=== PATIENT | female | born 1990 ===

== ENCOUNTER 2018-01-21 17:33 | Emergency (ER) | payer MEDICAID ==
[2018-01-21 17:59] VITALS: BP 140/95
[2018-01-21 18:36] LABS: Basophils # (Auto) 0.1 K/mm3 (0.0-0.1); Basophils % (Auto) 0.9 % (0.0-1.8); Eosinophils # (Auto) 0.2 K/mm3 (0.0-0.4); Eosinophils % (Auto) 2.3 % (0.0-4.3); Hematocrit 41.1 % (30.3-42.9); Hemoglobin 13.8 gm/dl (10.1-14.3); Lymphocytes # (Auto) 1.9 K/mm3 (1.2-5.4); Mean Corpuscular HGB Conc 34 % (30-34); Mean Corpuscular Hemoglobin 32 pg (28-32); Mean Corpuscular Volume 96 fl (79-97); Monocytes # (Auto) 0.6 K/mm3 (0.0-0.8); Monocytes % (Auto) 6.1 % (0.0-7.3); Platelet Count 204 K/mm3 (140-440); Red Blood Count 4.28 M/mm3 (3.65-5.03); Red Cell Distribution Width 12.7 % (13.2-15.2)
[2018-01-21 18:59] LABS: BUN/Creatinine Ratio 14; Blood Urea Nitrogen 10 mg/dL (7-17); Calcium 9.6 mg/dL (8.4-10.2); Hemolysis Index 39
--- NOTE | 2018-01-21 20:33 | Emergency Department Report ---
ED HPI - General Chief complaint: Medical Clearance Stated complaint: EPTOMIC /PAIN Time Seen by Provider: 01/21/18 18:56 Source: patient Mode of arrival: Ambulatory Limitations: No Limitations - History of Present Illness Initial comments: 27-year-old female was at the clinic with a confirmed via urine. They performed an ultrasound and reported seen. No evidence of an IUP at that time. She was advised to come to the emergency department for evaluation of an ectopic . Ultrasound did not report seeing any masses in the fallopian tubecyst. [facility] "was not performed. Patient has been pain free reports no vaginal bleeding, vaginal discharge or cramping. - Related Data Allergies Allergy/AdvReac Type Severity Reaction Status Date / Time No Known Allergies Allergy Unverified 01/21/18 17:55 ED Review of Systems ROS: Stated complaint: EPTOMIC /PAIN Other details as noted in HPI Constitutional: denies: chills, fever Eyes: denies: eye pain, eye discharge, vision change ENT: denies: ear pain, throat pain Respiratory: denies: cough, shortness of breath, wheezing Cardiovascular: denies: chest pain, palpitations Endocrine: no symptoms reported Gastrointestinal: denies: abdominal pain, nausea, diarrhea Genitourinary: denies: urgency, dysuria, discharge Musculoskeletal: denies: back pain, joint swelling, arthralgia Skin: denies: rash, lesions Neurological: denies: headache, weakness, paresthesias Psychiatric: denies: anxiety, depression Hematological/Lymphatic: denies: easy bleeding, easy bruising ED Past Medical Hx - Past Medical History Previous Medical History?: No - Surgical History Past Surgical History?: No - Social History Smoking Status: Never Smoker Substance Use Type: None ED Physical Exam - General Limitations: No Limitations General appearance: alert, in no apparent distress - Head Head exam: Present: atraumatic, normocephalic - Eye Eye exam: Present: normal appearance - ENT ENT exam: Present: mucous membranes moist - Neck Neck exam: Present: normal inspection - Respiratory Respiratory exam: Present: normal lung sounds bilaterally. Absent: respiratory distress - Cardiovascular Cardiovascular Exam: Present: regular rate, normal rhythm. Absent: systolic murmur, diastolic murmur, rubs, gallop - GI/Abdominal GI/Abdominal exam: Present: soft, normal bowel sounds - Extremities Exam Extremities exam: Present: normal inspection - Back Exam Back exam: Present: normal inspection - Neurological Exam Neurological exam: Present: alert, oriented X3 - Psychiatric Psychiatric exam: Present: normal affect, normal mood - Skin Skin exam: Present: warm, dry, intact, normal color. Absent: rash ED Course Vital Signs 01/21/18 17:55 Temperature 97.8 F Pulse Rate 81 Respiratory 20 Rate Blood Pressure 140/95 O2 Sat by Pulse 100 Oximetry ED Medical Decision Making - Lab Data Result diagrams: 01/21/18 18:22 01/21/18 18:22 - Radiology Data Radiology results: report reviewed - Medical Decision Making Discussed the findings of the ultrasound report. The need to follow with OB/ [facility] for serial hCG checks and repeat ultrasound some point. No evidence of any ectopic wasn't was confirmed with this visit Critical care attestation.: If time is entered above; I have spent that time in minutes in the direct care of this critically ill patient, excluding procedure time. ED Disposition Clinical Impression: Elevated serum hCG Disposition: DC- TO HOME OR SELFCARE Is pt being admited?: No Does the pt Need Aspirin: No Condition: Stable Instructions: (ED) Referrals: PRIMARY CARE, [Primary Care Provider] - 3-5 Days [facility] [Provider Group] - 2-3 Days (repeat HCG quant and possible repeat US in 2-3 weeks )
--- NOTE | 2018-01-21 21:26 | Ultrasound Report ---
FINAL REPORT EXAM: US OB TRANSVAGINAL HISTORY: pelvic pain and last menstrual period is unknown. Possibly November 23, 2017. TECHNIQUE: Transvaginal grayscale and color-flow imaging of the pelvis was performed. Comparison: Transabdominal study also performed today FINDINGS: The uterus measures 9.5 centimeters x 4.9 centimeters x 5.9 centimeters. Endometrial thickness measures 12.4 millimeters. There is demonstration of a small, approximately 2.8 millimeter x 2.2 millimeter x 4 millimeter, hypoechoic region within the endometrium in the region of the fundus. This may represent an early intrauterine gestational sac. There is no demonstration of yolk sac or pole at this time. The cervix is unremarkable in appearance. The right ovary measures 3.3 centimeters x 2.3 centimeters x 2.4 centimeters. There is a heterogeneous hypoechoic region within the right ovary which may represent a corpus luteum cyst. The left ovary measures 2.7 centimeters x 1.9 centimeters x 2.3 centimeters and is unremarkable in appearance. No free fluid is demonstrated in the pelvis. IMPRESSION: 1. Small hypoechoic region in the endometrium in the region of the fundus of the uterus. This may represent an early intrauterine gestational sac. Short-term follow-up in correlation with beta HCG will be helpful. 2. Possible corpus luteum cyst right ovary.
--- NOTE | 2018-01-21 21:29 | Ultrasound Report ---
FINAL REPORT EXAM: US OB < = 14 WEEKS FETUS HISTORY: sent from clinic to evaluate for ectopic last menstrual period is unknown but possibly November 23, 2017. TECHNIQUE: Transabdominal grayscale and color-flow imaging of the pelvis was performed. Comparison: Transvaginal study also performed today. FINDINGS: The uterus measures 7.9 centimeters x 4.8 centimeters by 6.1 centimeters. Endometrial thickness measures 2.7 centimeters. There is no definite evidence of an intrauterine gestation on the transabdominal study. The right ovary measures 4 centimeters x 2.4 centimeters x 3.3 centimeters in size. The left ovary is not visualized on the transabdominal study. No free fluid is demonstrated in the pelvis. IMPRESSION: 1. Increased thickness of the endometrium. 2. No demonstration of an intrauterine gestation on the transabdominal study. Please see report of transvaginal study also performed today which describes a small possible early intrauterine gestational sac. Short-term follow-up in correlation with beta HCG will be helpful.
[2018-01-21 21:51] LABS: Bacteria,Urine 2+ /HPF (Negative); Bilirubin,Urine NEG (Negative); Blood,Urine MOD (Negative); Color,Urine Yellow (Yellow); Mucus,Urine FEW /HPF; Protein,Urine <15 mg/dL mg/dL (Negative); Urobilinogen,Urine < 2.0 mg/dL (<2.0)
== END 2018-01-21 22:37 | disposition home or self-care (01) ==
LOC: ED 17:33
DX: Z32.01 Encounter for pregnancy test, result positive (principal)
CPT/HCPCS: 36415; 76801; 76817; 80048; 81001; 84702; 85025; 86900; 86901; 99284

== ENCOUNTER 2018-07-29 01:14 | Emergency (ER) | payer MEDICAID ==
[2018-07-28 21:51] LABS: Hematocrit 36.3 % (30.3-42.9); Hemoglobin 12.4 gm/dl (10.1-14.3); Mean Corpuscular HGB Conc 34 % (30-34); Mean Corpuscular Volume 93 fl (79-97); Platelet Count 177 K/mm3 (140-440); Red Blood Count 3.91 M/mm3 (3.65-5.03); Red Cell Distribution Width 13.2 % (13.2-15.2)
--- NOTE | 2018-07-29 00:12 | Ultrasound Report ---
PROCEDURE: US OB LIMITED TECHNIQUE: Real-time limited sonographic examination was performed for evaluation of for each fetus with image documentation (1 or more fetuses). HISTORY: s/p fall COMPARISONS: None . FINDINGS: Amniotic fluid index is 12 cm which is within normal limits. Fetus is in cephalic presentation. Placenta is right lateral. There is no previa. heart rate is 155 bpm. IMPRESSION: Amniotic fluid index equals 12 cm. This document is electronically signed by Ming Grady MD., July 29 2018 12:10:09 AM ET
[~2018-07-29 01:14] MED LIST: LACTATED RINGERS 1,000 ML IV ONE; LACTATED RINGERS 1,000 ML ONE
--- NOTE | 2018-07-29 03:01 | XRay Report ---
PROCEDURE: XR ANKLE 3+V RT TECHNIQUE: 3 views of the right ankle were obtained. HISTORY: fall with pain COMPARISONS: None FINDINGS: There is mild soft tissue swelling overlying the lateral malleolus. Ankle mortise is well-maintained. There is no evidence of fracture. IMPRESSION: Lateral soft tissue swelling. No evidence of fracture.. This document is electronically signed by Franky Juarez MD., July 29 2018 03:00:05 AM ET
--- NOTE | 2018-07-29 03:30 | XRay Report ---
PROCEDURE: RIGHT FOOT, 3 VIEWS TECHNIQUE: RIGHT foot radiographs, AP, lateral, and oblique views. CPT 62232 HISTORY: Pain COMPARISONS: None . FINDINGS: Fracture (s) and/or Dislocation(s): None . Alignment: Normal . Joint space(s): Normal . Soft tissues: Normal . Bone mineralization: Normal . Foreign bodies: None . Calcaneal spurring: None . IMPRESSION: Normal Examination . This document is electronically signed by Ming Grady MD., July 29 2018 03:28:54 AM ET
--- NOTE | 2018-07-29 04:44 | Emergency Department Report ---
ED Lower Extremity HPI - General Chief Complaint: Extremity Injury, Lower Stated Complaint: PREG Time Seen by Provider: 07/29/18 04:27 Source: patient Mode of arrival: Ambulatory Limitations: No Limitations - History of Present Illness Initial Comments: Pt is a 28 yo female who presents to the ED with c/o right ankle pain and edema that began today at 8 PM. She states she stepped wrong off of her porch. She has not been ambulatory since the fall secondary to pain. She has a tingling sensation in her toes. She is able to move the digits. She denies any numbness or weakness. She denies any previous injury. She is currently 31 weeks and was cleared by L&D prior to being evaluated in the ED. She denies any abd pain or vag bleeding. - Related Data Home Medications Medication Instructions Recorded Confirmed Last Taken Pnv 29-1 Tablet 1 tab PO 07/28/18 07/27/18 20:00 1 tab Allergies Allergy/AdvReac Type Severity Reaction Status Date / Time No Known Allergies Allergy Unverified 01/21/18 17:55 ED Review of Systems ROS: Stated complaint: PREG Other details as noted in HPI Comment: All other systems reviewed and negative ED Past Medical Hx - Past Medical History Previous Medical History?: No Hx Hypertension: No Hx Diabetes: No Hx Deep Vein Thrombosis: No Hx Renal Disease: No Hx Sickle Cell Disease: No Hx Seizures: No Hx Asthma: No - Surgical History Past Surgical History?: No - Social History Smoking Status: Never Smoker Substance Use Type: None - Medications Home Medications: Home Medications Medication Instructions Recorded Confirmed Last Taken Type Pnv 29-1 Tablet 1 tab PO 07/28/18 07/27/18 20:00 History 1 tab ED Physical Exam - General Limitations: No Limitations General appearance: alert, in no apparent distress - Head Head exam: Present: atraumatic, normocephalic - Eye Eye exam: Present: normal appearance - ENT ENT exam: Present: mucous membranes moist - Extremities Exam Extremities exam: Present: other (TTP over the right lateral malleolus, edema present over the right lateral ankle, no TTP of the right foot, FROM of the right ankle with pain with flexion and internal rotation, no obvious joint laxity, neurovascularly intact) - Neurological Exam Neurological exam: Present: alert, oriented X3 - Psychiatric Psychiatric exam: Present: normal affect, normal mood - Skin Skin exam: Present: warm, dry, intact ED Course Vital Signs 07/28/18 07/28/18 07/29/18 20:52 21:05 01:20 Temperature 98.2 F 98.4 F Pulse Rate 93 H 93 H 101 H Respiratory 18 18 Rate Blood Pressure 112/71 126/78 Blood Pressure 112/71 [Left] O2 Sat by Pulse 97 Oximetry ED Lower Extremity MDM - Lab Data Result diagrams: 07/28/18 21:40 - Radiology Data Radiology results: report reviewed PROCEDURE: RIGHT FOOT, 3 VIEWS TECHNIQUE: RIGHT foot radiographs, AP, lateral, and oblique views. CPT 49640 HISTORY: Pain COMPARISONS: None . FINDINGS: Fracture (s) and/or Dislocation(s): None . Alignment: Normal . Joint space(s): Normal . Soft tissues: Normal . Bone mineralization: Normal . Foreign bodies: None . Calcaneal spurring: None . IMPRESSION: Normal Examination . This document is electronically signed by Ming Grady MD., July 29 2018 03:28:54 AM ET PROCEDURE: XR ANKLE 3+V RT TECHNIQUE: 3 views of the right ankle were obtained. HISTORY: fall with pain COMPARISONS: None FINDINGS: There is mild soft tissue swelling overlying the lateral malleolus. Ankle mo rtise is well- maintained. There is no evidence of fracture. IMPRESSION: Lateral soft tissue swelling. No evidence of fracture.. This document is electronically signed by Franky Juarez MD., July 29 2018 03:00:05 AM ET - Medical Decision Making Pt is a 28 yo female who presents to the ED with c/o right ankle pain and edema that began today at 8 PM. She states she stepped wrong off of her porch. She has not been ambulatory since the fall secondary to pain. She has a tingling sensation in her toes. She is able to move the digits. She denies any numbness or weakness. She denies any previous injury. She is currently 31 weeks and was cleared by L&D prior to being evaluated in the ED. She denies any abd pain or vag bleeding. XR of the right foot with no acute process. XR of the right ankle with Lateral soft tissue swelling. No evidence of fracture. Will place pt in a ankle splint, give crutches, and have pt follow up with Dr. Vang, orthopedic in the next 2-3 days. Advised pt that tylenol for pain is safe in . Advised pt to follow up with [facility] in the next 2-3 days. Return to the emergency room for any new or worsening symptoms. - Differential Diagnosis fx, sprain, strain, dislocation Critical care attestation.: If time is entered above; I have spent that time in minutes in the direct care of this critically ill patient, excluding procedure time. ED Disposition Clinical Impression: Right ankle sprain Qualifiers: Encounter type: initial encounter Involved ligament of ankle: unspecified ligament Qualified Code(s): S93.401A - Sprain of unspecified ligament of right ankle, initial encounter Disposition: TO HOME OR SELFCARE Is pt being admited?: No Does the pt Need Aspirin: No Condition: Stable Instructions: Labor and Delivery General Instructions, Labor/ Labor Instructions, Ankle Sprain (ED), Ankle Stirrup Splint (ED), Crutch Instructions (ED) Additional Instructions: Please follow up with your doctor and keep your next scheduled appointment. Drink a gallon of water daily. Call office with any additional concerns or questions and notify provider. Please follow up with Dr. Vang, orthopedic in the next 2-3 days. Tylenol for pain is safe in . Follow up with [facility] in the next 2-3 days. Return to the emergency room for any new or worsening symptoms. May ice area for 15 min every 2 hours. Use rest and elevation. Referrals: MAGDI BEARD MD [Primary Care Provider] - 2-3 Days FRANKY VANG MD [Staff Physician] - 2-3 Days Forms: [facility] Discharge Summary Time of Disposition: 04:45 Print Language: MACEDONIAN
[2018-07-29 05:17] VITALS: BP 110/53
== END 2018-07-29 04:50 | disposition home or self-care (01) ==
LOC: TRG 01:14 → ED 01:14
DX: O9A.213 Injury, poisoning and certain other consequences of external causes complicating pregnancy, third trimester (principal); S93.401A Sprain of unspecified ligament of right ankle, initial encounter; W18.30XA Fall on same level, unspecified, initial encounter; Y93.89 Activity, other specified; Y92.89 Other specified places as the place of occurrence of the external cause; Y99.8 Other external cause status
CPT/HCPCS: 29515; 36415; 59025; 73610; 73630; 76815; 85027; 85460; 99285; J7120; 96360